=== PATIENT | female | born 1935 | race Caucasian/White ===

== ENCOUNTER 2018-10-11 00:50 | Emergency (ER) | payer MEDICARE, OTHER ==
--- NOTE | 2018-10-11 01:21 | ERPHSYRPT ---
- History of Present Illness Time Seen by Provider: 10/11/18 01:20 Source: patient Exam Limitations: no limitations Patient Subjective Stated Complaint: pt is ambulatory with a steady gait. pt is ambulatory with a steady gait. pt comes in with SOB. pt denies chest pain, Dizziness, lightheadedness, n/v/d. pt has multiple bites to her lower legs. pt states that she had bed bugs. pt is 96% on RA. pt lung sounds clear. pt has hx of asthma. Triage Nursing Assessment: see above Physician History: pt comes in with SOB. pt denies chest pain, Dizziness, lightheadedness, n/v/d. pt has multiple bites to her lower legs. pt states that she had bed bugs Timing/Duration: today Allergies/Adverse Reactions: ezetimibe [From Vytorin 10-10] Allergy (Intermediate, Verified 10/10/12 14:55) simvastatin [From Vytorin 10-10] Allergy (Intermediate, Verified 10/10/12 14:55) NSAIDS (Non-Steroidal Anti-Inflamma Allergy (Mild, Verified 10/10/12 14:55) colchicine Allergy (Verified 10/11/18 01:05) pregabalin [From Lyrica] Allergy (Verified 10/10/12 14:55) indomethacin Adverse Reaction (Severe, Verified 10/10/12 14:55) seizures rofecoxib [From Vioxx] Adverse Reaction (Severe, Verified 10/10/12 14:55) atorvastatin calcium [From Lipitor] Adverse Reaction (Intermediate, Verified 14:55) pain Penicillins Adverse Reaction (Intermediate, Verified 10/10/12 14:55) Itching pravastatin sodium [From Pravachol] Adverse Reaction (Intermediate, Verified 14:55) Swelling niacin [From Simcor] Adverse Reaction (Verified 10/10/12 14:55) Home Medications: Albuterol Sulfate [Ventolin Hfa] 90 mcg NEB QID 08/20/12 [History] Allopurinol 100 mg [Zyloprim 100 mg] 100 mg PO DAILY 08/20/12 [History] Aspirin [Aspir 81] 81 mg PO DAILY 08/20/12 [History] Clopidogrel Bisulfate 75 mg [PLAVIX 75 MG Tablet] 75 mg PO HS 08/20/12 [ History] Fluoxetine HCl 20 mg [Prozac 20 MG] 20 mg PO BID 08/20/12 [History] Levothyroxine Sodium 100 Mcg [Synthroid 100 Mcg] 100 mcg PO DAILY 08/20/12 [History] Loratadine 10 mg [Claritin 10 mg] 10 mg PO DAILY 08/20/12 [History] Metoprolol Tartrate 25 mg [Lopressor 25MG Tab] 25 mg PO BID 08/20/12 [ History] Pravastatin Sodium 40 mg PO HS 08/20/12 [History] Spironolactone 25 mg [Aldactone 25 MG] 25 mg PO DAILY 08/20/12 [History] Zafirlukast 20 mg [Accolate 20 mg] 20 mg PO DAILY 08/20/12 [History] Hx Tetanus, Diphtheria Vaccination/Date Given: No Hx Influenza Vaccination/Date Given: Yes Hx Pneumococcal Vaccination/Date Given: Yes Immunizations Up to Date: Yes - Review of Systems Constitutional: No Fever, No Chills Eyes: No Symptoms Ears, Nose, & Throat: No Symptoms Respiratory: No Cough, No Dyspnea Cardiac: No Chest Pain, No Edema, No Syncope Abdominal/Gastrointestinal: No Abdominal Pain, No Nausea, No Vomiting, No Diarrhea Genitourinary Symptoms: No Dysuria Musculoskeletal: No Back Pain, No Neck Pain Skin: No Rash Neurological: No Dizziness, No Focal Weakness, No Sensory Changes Psychological: No Symptoms Endocrine: No Symptoms All Other Systems: Reviewed and Negative - Past Medical History Pertinent Past Medical History: Yes Neurological History: Migraines ENT History: No Pertinent History Cardiac History: Congestive Heart Failure, High Cholesterol, Hypertension Respiratory History: Asthma, COPD Endocrine Medical History: Diabetes Type II, Hypothyroidism Musculoskeletal History: Osteoarthritis GI Medical History: Gallbladder Disease History: No Pertinent History Psycho-Social History: Anxiety Female Reproductive Disorders: No Pertinent History Other Medical History: GOUT, NEURAPTHAY - Past Surgical History Past Surgical History: Yes Neuro Surgical History: No Pertinent History Cardiac: Cardiac Catheterization, Cardiac Stent Gastrointestinal: Cholecystectomy Genitourinary: No Pertinent History Musculoskeletal: Joint Replacement Female Surgical History: Section Other Surgical History: double hip replacement - Social History Smoking Status: Never smoker Exposure to second hand smoke: No Drug Use: none Patient Lives Alone: Yes - Female History Hx Now: No - Nursing Vital Signs Nursing Vital Signs: Initial Vital Signs Pulse Rate 109 H 10/11/18 00:53 Respiratory Rate 18 10/11/18 00:53 Blood Pressure 143/92 10/11/18 00:53 O2 Sat by Pulse Oximetry 95 10/11/18 00:53 - Physical Exam General Appearance: no apparent distress, alert Eye Exam: PERRL/EOMI Neck Exam: normal inspection, supple Cardiovascular/Chest Exam: normal heart sounds, regular rate/rhythm Abdominal/Gastrointestinal Exam: soft, No tenderness, No distention, No mass Extremity Exam: non-tender, normal range of motion, normal inspection, no calf tenderness, no pedal edema Neurologic Exam: alert, oriented x 3, cooperative, project engineering director II-XII nml as tested, sensation nml, No motor deficits Skin Exam: normal color, warm, other (bugs bite all over body), No dry SpO2 Interpretation: normal SpO2: 95 - Course Nursing assessment & vital signs reviewed: Yes Ordered Tests: Active Orders 24 hr Category Date Time Status CHEST 1 VIEW (PORTABLE) Stat Exams 10/11/18 01:12 Taken CBC W DIFF Stat Lab 10/11/18 01:39 Completed CMP Stat Lab 10/11/18 01:39 Completed Lab/Rad Data: Laboratory Result Diagrams 10/11/18 01:39 10/11/18 01:39 Laboratory Results 10/11/18 10/11/18 Range/Units 01:39 01:39 WBC 10.4 (4.0-10.5) K/mm3 RBC 3.99 L (4.1-5.4) M/mm3 Hgb 12.9 (12.0-16.0) gm/dl Hct 39.7 (35-47) % MCV 99.5 (78-100) fl MCH 32.3 H (26-32) pg MCHC 32.5 (32-36) g/dl RDW 13.3 (11.5-14.0) % Plt Count 254 (150-450) K/mm3 MPV 11.0 H (6-9.5) fl Gran % 57.9 (36.0-66.0) % Eos # (Auto) 0.42 (0-0.5) Absolute Lymphs (auto) 2.94 (1.0-4.6) Absolute Monos (auto) 0.93 (0.0-1.3) Lymphocytes % 28.3 (24.0-44.0) % Monocytes % 9.0 (0.0-12.0) % Eosinophils % 4.0 (0.00-5.0) % Basophils % 0.8 (0.0-0.4) % Absolute Granulocytes 6.02 (1.4-6.9) Basophils # 0.08 (0-0.4) Sodium 141 (137-145) mmol/L Potassium 3.7 (3.5-5.1) mmol/L Chloride 102 (98-107) mmol/L Carbon Dioxide 26 (22-30) mmol/L Anion Gap 16.0 H (5-15) MEQ/L BUN 39 H (7-17) mg/dL Creatinine 1.32 H (0.52-1.04) mg/dL Estimated GFR 41.2 ML/MIN Glucose 179 H (74-106) mg/dL Calcium 9.5 (8.4-10.2) mg/dL Total Bilirubin 0.70 (0.2-1.3) mg/dL AST 18 (14-36) U/L ALT 15 (0-35) U/L Alkaline Phosphatase 77 (38-126) U/L Serum Total Protein 7.9 (6.3-8.2) g/dL Albumin 4.2 (3.5-5.0) g/dL - Progress Progress: improved Air Movement: good Blood Culture(s) Obtained: No Antibiotics given: No Counseled pt/family regarding: lab results, diagnosis, need for follow-up - Departure Time of Disposition: 02:26 Departure Disposition: Home Clinical Impression: Shortness of breath with rash, Infestation by bed bug Condition: Stable Critical Care Time: No Referrals: CORDELL PAGE MD [Primary Care Provider] - Instructions: Shortness of Breath (Dyspnea) (DC), Bedbugs Additional Instructions: HOSSEINGEO Mandeep was seen on 10/11/18 n the Emergency Room. At that time you were treated for an emergent condition, during your visit Laboratory, Radiology and/or other procedures may have been ordered. It is very important that you follow-up with your Primary Care Physician CORDELL PAGE within the next 24- 48 hours to review your Emergency Room visit and the final results of testing that was ordered. Some test results such as Urine Cultures, Blood Cultures, and other cultures if ordered will not be finalized for 24-48 hours. If you do not have a Primary Care Provider please call the medical records department at [phone] to obtain a copy of your results or you may sign into our patient portal to obtain these results by visiting us @ [email or web address] and completing the following steps: 1. Click on the Patient Portal link 2. Click the Patient Self Enrollment Link to complete the enrollment form and entering your 3. Once the enrollment form is completed you will receive an email with a temporary ID and password at the email address you provided. 4. Next choose a user name and password. Your user name must be at least 4 characters long and your password must be at least 4 characters long. 5. Choose a security question from the list and provide your answer to the question. If you already have signed into the Health Portal you may access your Health Care Information 11/02 by the following steps: 1. Login to our website @ [email or web address] 2. Enter your original user name and password. FAQS The [facility] Health Portal is an online tool that contains your Lab Results, Radiology Reports, Visit History, Discharge Instructions and Health Summary Lab and Radiology Results will not be available for 72 hours on the portal. The Portal is a secure site, passwords are encryted and URLs are re-written so they cannot be copied and pasted. You and authorized family members are the only ones who can access your Portal. Also there is a timeout feature that protects your information if you leave the Portal page open. If you have technical difficulty please use the Contact Us link on the page this will allow you to submit any questions you have regarding the Portal or you may contact the Medical Record Department at [phone] ext [phone].
[2018-10-11 01:37] LABS: BASOPHIL % 0.8 % (0.0-0.4); Basophil (Absolute #) 0.08 (0-0.4); Eosinophil (Absolute #) 0.42 (0-0.5); Granulocyte Absolute (ANC) 6.02 (1.4-6.9); Granulocytes % 57.9 % (36.0-66.0); Hematocrit 39.7 % (35-47); Hemoglobin 12.9 gm/dl (12.0-16.0); Lymphocyte (Absolute #) 2.94 (1.0-4.6); Lymphocytes % 28.3 % (24.0-44.0); Mean Cell Volume 99.5 fl (78-100); Mean Corpuscular Hemoglobin 32.3 pg (26-32); Mean Corpuscular Hgb Concent. 32.5 g/dl (32-36); Monocyte (Absolute #) 0.93 (0.0-1.3); Platelet Count 254 K/mm3 (150-450); Red Blood Count 3.99 M/mm3 (4.1-5.4); Red Cell Distribution Width 13.3 % (11.5-14.0); White Blood Count 10.4 K/mm3 (4.0-10.5)
[2018-10-11 01:51] LABS: ALBUMIN 4.2 g/dL (3.5-5.0); BILIRUBIN,TOTAL 0.7 mg/dL (0.2-1.3); Calcium 9.5 mg/dL (8.4-10.2); Creatinine 1 1.32 mg/dL (0.52-1.04); Potassium 3.7 mmol/L (3.5-5.1); Total Protein 7.9 g/dL (6.3-8.2)
[2018-10-11] MEDS ORDERED: BENADRYL 50 MG/ML IM ONE (02:26)
[2018-10-11] MEDS ORDERED: BENADRYL 50 MG/ML ONE (02:28)
[2018-10-11 02:29] VITALS: O2SAT 95
[2018-10-11 02:50] VITALS: BP 146/71; PULSE 77
--- NOTE | 2018-10-11 09:22 | XRAY ---
Indication: Short of breath. Comparison: October 10, 2012. Portable chest demonstrates stable bilateral midlung fibrosis/scarring. No focal infiltrate, consolidation, or large effusion. Heart is not enlarged for AP portable technique. Bony thorax intact again with mild osteopenia and degenerative changes. Impression: Stable nonacute chest with chronic features.
== END 2018-10-11 02:48 | disposition home or self-care (01) ==
LOC: ED 00:50
DX: R06.02 Shortness of breath (principal); R21 Rash and other nonspecific skin eruption; B88.8 Other specified infestations; I50.9 Heart failure, unspecified; E78.00 Pure hypercholesterolemia, unspecified; I10 Essential (primary) hypertension; J44.9 Chronic obstructive pulmonary disease, unspecified; F41.9 Anxiety disorder, unspecified; M10.9 Gout, unspecified; G62.9 Polyneuropathy, unspecified; Z79.899 Other long term (current) drug therapy
CPT/HCPCS: 36415; 71045; 80053; 85025; 96372; 99284; J1200

== ENCOUNTER 2023-02-22 13:33 | Observation (INO) | payer MEDICARE, OTHER ==
[2023-02-22 14:46] LABS: Absolute Neutrophil Ct (ANC) 5.28 x10^3/uL (1.4-6.9); BASOPHIL % 0.9 % (0.0-0.4); Basophil (Absolute #) 0.09 x10^3/uL (0-0.4); Eosinophil % 2.4 % (0.00-5.0); Eosinophil (Absolute #) 0.24 x10^3/uL (0-0.5); Hematocrit 38.2 % (35-47); Hemoglobin 12.2 g/dL (12.0-16.0); IMMATURE GRAN # 0.04 x10^3u/L (0.00-0.03); IMMATURE GRAN % 0.4 % (0.00-0.4); Lymphocyte (Absolute #) 3.14 x10^3/uL (1.0-4.6); Mean Cell Volume 96.7 fL (78-100); Mean Corpuscular Hemoglobin 30.9 pg (26-32); Mean Corpuscular Hgb Concent. 31.9 g/dL (32-36); Mean Platelet Volume 11.2 fL (7.5-11.0); Monocyte (Absolute #) 1.01 x10^3/uL (0.0-1.3); Monocytes % 10.3 % (0.0-12.0); NUCLEATED RBC # 0.03 x10^3u/L (0.00-0.01); NUCLEATED RBC % 0.3 % (0.00-0.1); Platelet Count 215 x10^3/uL (150-450); Red Blood Count 3.95 x10^6/uL (4.1-5.4); Red Cell Distribution Width 15.3 % (11.5-14.0); White Blood Count 9.8 x10^3/uL (4.0-10.5)
--- NOTE | 2023-02-22 14:48 | ERPHSYRPT ---
- History of Present Illness Time Seen by Provider: 02/22/23 13:41 Source: patient, family Exam Limitations: no limitations Patient Subjective Stated Complaint: Cough Triage Nursing Assessment: Patient brought back to ED per w/c and transferred self to bed. Patient A+O X 3. Patient's skin pink, warm and dry. Patient states she is Covid Positive as of February 19, 2023. Patient states she started having sore throat, fever, body aches and cough since Saturday. Patient complains of productive cough with thick yellow sputum. Lungs clear a/p gina. Physician History: 87 years old female with history of hypertension, hyperlipidemia, coronary artery disease, atrial fibrillation on Xarelto, asthma presented in the ER with chief complaint of cough congestion with a positive COVID-19 4 days ago. Patient reports it started 5 days ago with cough congestion, body aches and fever chills. Fever is improved for the last couple of days and now still have cough productive of clear to yellow sputum and mild shortness of breath with activity than her baseline. Denies any chest pain or palpitations. Patient oxygen saturation is around 96% on room. No tachypnea but cardiac. Timing/Duration: day(s) (5), gradual onset, improved Cough Quality/Degree: moderate, productive cough Possible Cause: illness exposure Modifying Factors: Worsens With: coughing Associated Symptoms: fever, chills, chest pain/soreness, cough, headache, muscle aches, nasal congestion, shortness of breath, sore throat Allergies/Adverse Reactions: ezetimibe [From Vytorin 10-10] Allergy (Intermediate, Verified 02/22/23 13:48) simvastatin [From Vytorin 10-10] Allergy (Intermediate, Verified 02/22/23 13:48) NSAIDS (Non-Steroidal Anti-Inflamma Allergy (Mild, Verified 02/22/23 13:48) colchicine Allergy (Verified 02/22/23 13:48) pregabalin [From Lyrica] Allergy (Verified 02/22/23 13:48) indomethacin Adverse Reaction (Severe, Verified 02/22/23 13:48) seizures rofecoxib [From Vioxx] Adverse Reaction (Severe, Verified 02/22/23 13:48) atorvastatin calcium [From Lipitor] Adverse Reaction (Intermediate, Verified 02/22/23 13:48) pain Penicillins Adverse Reaction (Intermediate, Verified 02/22/23 13:48) Itching pravastatin sodium [From Pravachol] Adverse Reaction (Intermediate, Verified 02/22/23 13:48) Swelling niacin [From Simcor] Adverse Reaction (Verified 02/22/23 13:48) Home Medications: Albuterol Sulfate [Ventolin Hfa] 90 mcg NEB QID 08/20/12 [History] Allopurinol 100 mg [Zyloprim 100 mg] 100 mg PO DAILY 08/20/12 [History] Aspirin [Aspir 81] 81 mg PO DAILY 08/20/12 [History] Clopidogrel Bisulfate [PLAVIX Tablet] 75 mg PO HS 08/20/12 [History] Fluoxetine HCl 20 mg [Prozac 20 MG] 20 mg PO BID 08/20/12 [History] Levothyroxine Sodium 100 Mcg [Synthroid 100 Mcg] 100 mcg PO DAILY 08/20/12 [History] Loratadine 10 mg [Claritin 10 mg] 10 mg PO DAILY 08/20/12 [History] Metoprolol Tartrate 25 mg [Lopressor 25MG Tab] 25 mg PO BID 08/20/12 [History] Pravastatin Sodium 40 mg PO HS 08/20/12 [History] Spironolactone 25 mg [Aldactone 25 MG] 25 mg PO DAILY 08/20/12 [History] Zafirlukast 20 mg [Accolate 20 mg] 20 mg PO DAILY 08/20/12 [History] Hx Tetanus, Diphtheria Vaccination/Date Given: No Hx Influenza Vaccination/Date Given: Yes Hx Pneumococcal Vaccination/Date Given: Yes Immunizations Up to Date: Yes Travel Risk - International Travel Have you traveled outside of the country in past 3 weeks: No - Coronavirus Screening Are you exhibiting any of the following symptoms?: Yes Symptoms: Fever, Cough: New Onset, Shortness of Breath - Vaccine Status Have you recieved a Covid-19 vaccination: Yes Medical Education Coordinator: Unknown - Vaccination Dates Dates if Unknown: na - Review of Systems Constitutional: Fatigue, Weakness Eyes: No Symptoms Ears, Nose, & Throat: Nose Congestion, Throat Pain Respiratory: Cough, Dyspnea Cardiac: No Symptoms Abdominal/Gastrointestinal: No Symptoms Genitourinary Symptoms: No Symptoms Musculoskeletal: Myalgias Skin: No Symptoms Neurological: Headache Hematologic/Lymphatic: No Symptoms Immunological/Allergic: No Symptoms - Past Medical History Pertinent Past Medical History: Yes Neurological History: Migraines ENT History: No Pertinent History Cardiac History: Congestive Heart Failure, High Cholesterol, Hypertension Respiratory History: Asthma, COPD Endocrine Medical History: Diabetes Type II, Hypothyroidism Musculoskeletal History: Osteoarthritis GI Medical History: Gallbladder Disease History: No Pertinent History Psycho-Social History: Anxiety Female Reproductive Disorders: No Pertinent History Other Medical History: GOUT, NEURAPTHAY - Past Surgical History Past Surgical History: Yes Neuro Surgical History: No Pertinent History Cardiac: Cardiac Catheterization, Cardiac Stent Gastrointestinal: Cholecystectomy Genitourinary: No Pertinent History Musculoskeletal: Joint Replacement Female Surgical History: Section Other Surgical History: double hip replacement - Social History Smoking Status: Never smoker Exposure to second hand smoke: No Drug Use: none Patient Lives Alone: Yes - Nursing Vital Signs Nursing Vital Signs: Initial Vital Signs Temperature 98.6 F 02/22/23 13:49 Pulse Rate 61 02/22/23 13:49 Respiratory Rate 19 02/22/23 13:49 Blood Pressure 112/62 02/22/23 13:49 O2 Sat by Pulse Oximetry 96 02/22/23 13:49 Pain Scale Pain Intensity 0 - Physical Exam General Appearance: no apparent distress, alert Eye Exam: PERRL/EOMI Ears, Nose, Throat Exam: pharyngeal erythema Neck Exam: normal inspection, non-tender, supple, full range of motion Respiratory Exam: normal breath sounds, lungs clear Cardiovascular Exam: regular rate/rhythm, normal heart sounds Gastrointestinal/Abdomen Exam: soft, No tenderness Extremity Exam: normal inspection, normal range of motion Neurologic Exam: alert, oriented x 3, cooperative, athletic director II-XII nml as tested Skin Exam: normal color SpO2 Interpretation: normal SpO2: 96 O2 Delivery: Room Air - Course EKG Interpreted by Me: RATE, Sinus Rhythm, NORMAL AXIS, Right Bundle Branch Block, Non-specific ST Changes Ordered Tests: Active Orders 24 hr Category Date Time Status Bedrest ROUTINE Activity 02/22/23 16:55 Completed Up With Assistance ROUTINE Activity 02/22/23 16:55 Completed Code Status Order ROUTINE Care 02/22/23 16:55 Active Fall Protocol ROUTINE Care 02/22/23 16:55 Active IV Care Q6H Care 02/22/23 16:55 Active IV Insertion STAT Care 02/22/23 16:[address] in Observation ROUTINE Care 02/22/23 16:55 Completed Madhuri Cox ROUTINE Care 02/22/23 16:55 Completed Weight,Daily 0600 Care 02/22/23 16:55 Active CHEST 1 VIEW (PORTABLE) Stat Exams 02/22/23 14:02 Taken BLOOD CULTURE Stat Lab 02/22/23 14:36 Received CBC W DIFF AM.LAB Lab 02/23/23 04:00 Ordered CBC W DIFF Stat Lab 02/22/23 14:01 Completed CMP AM.LAB Lab 02/23/23 04:00 Ordered CMP Stat Lab 02/22/23 14:36 Completed Lactic Acid Stat Lab 02/22/23 14:40 Completed MAGNESIUM Stat Lab 02/22/23 14:36 Completed NT PRO BNPII Stat Lab 02/22/23 14:36 Completed PROCALCITONIN Stat Lab 02/22/23 14:36 Completed TROPONIN Q4H Lab 02/22/23 14:36 Completed TROPONIN Q4H Lab 02/22/23 18:15 Ordered TROPONIN Q4H Lab 02/22/23 22:15 Ordered Transfer Order Routine Transfer 02/22/23 Completed Medication Summary Generic Name Dose Route Start Last Admin Trade Name Freq PRN Reason Stop Dose Admin Acetaminophen 650 mg 02/22/23 16:55 Acetaminophen 325 Mg Tablet PO 03/24/23 16:54 Q4H PRN PRN PAIN AND/OR FEVER Albuterol Sulfate 4 puff 02/22/23 19:00 Albuterol Common Canister Inhaler 03/24/23 18:59 QIDRT JORGE Albuterol/Ipratropium 3 ml 02/22/23 19:00 Ipratropium/Albuterol Sulfate 3 Ml Ampul.Neb 03/24/23 18:59 Q6HRT JORGE Famotidine 20 mg 02/22/23 22:00 Famotidine 20 Mg/1 Vial IV 03/24/23 21:59 Q12HT JORGE Azithromycin 500 mg in 250 mls @ 250 mls/hr 02/23/23 10:00 Zithromax 500 Mg/ 250 Ml Nacl Premix IV 03/25/23 09:59 Q24H10 JORGE Aztreonam 1 gm/ Sodium 100 mls @ 200 mls/hr 02/23/23 00:00 Chloride IV 02/26/23 00:00 Q6HT JORGE Fluticasone/Salmeterol 2 puff 02/22/23 19:00 Fluticasone/Salmeterol 115/21 - 120 Puff Common Canister IH 03/24/23 18:59 BIDRT JORGE Discontinued Medications Generic Name Dose Route Start Last Admin Trade Name Raul PRN Reason Stop Dose Admin Hydrocodone Bitart/Acetaminophen 10 ml 02/22/23 16:06 02/22/23 16:07 Hydrocodone/Acetaminophen 5 Ml Udcup PO 02/22/23 16:07 10 ml STAT STA Administration Hydrocodone Bitart/Acetaminophen Confirm 02/22/23 16:06 Hydrocodone/Acetaminophen 5 Ml Udcup Administered 02/22/23 16:07 Dose 10 ml .ROUTE .STK-MED ONE Dexamethasone Sodium Phosphate 6 mg 02/22/23 15:47 02/22/23 16:02 Dexamethasone Sod Phosphate 10 Mg/Ml IV 02/22/23 15:48 6 mg STAT ONE Administration Dexamethasone Sodium Phosphate Confirm 02/22/23 16:01 Dexamethasone Sod Phosphate 10 Mg/Ml Administered 02/22/23 16:02 Dose 10 mg .ROUTE .STK-MED ONE Azithromycin 500 mg in 250 mls @ 250 mls/hr 02/22/23 15:45 02/22/23 17:31 Zithromax 500 Mg/ 250 Ml Nacl Premix IV 02/22/23 16:44 250 mls/hr STAT STA Administration Aztreonam 2 gm/ Sodium 100 mls @ 200 mls/hr 02/22/23 15:46 02/22/23 16:23 Chloride IV 02/22/23 16:15 200 mls/hr STAT ONE Administration Azithromycin Confirm 02/22/23 17:30 Zithromax 500 Mg/ 250 Ml Nacl Premix Administered 02/22/23 17:31 Dose 500 mg in 250 mls @ ud IV .STK-MED ONE Lab/Rad Data: Laboratory Result Diagrams 02/22/23 14:01 02/22/23 14:36 Laboratory Results 02/22/23 02/22/23 02/22/23 Range/Units 14:40 14:36 14:36 WBC (4.0-10.5) x10^3/uL RBC (4.1-5.4) x10^6/uL Hgb (12.0-16.0) g/dL Hct (35-47) % MCV (78-100) fL MCH (26-32) pg MCHC (32-36) g/dL RDW (11.5-14.0) % Plt Count (150-450) x10^3/uL MPV (7.5-11.0) fL Gran % (36.0-66.0) % Immature Gran % (Auto) (0.00-0.4) % Nucleat RBC Rel Count (0.00-0.1) % Eos # (Auto) (0-0.5) x10^3/uL Immature Gran # (Auto) (0.00-0.03) x10^3u/L Absolute Lymphs (auto) (1.0-4.6) x10^3/uL Absolute Monos (auto) (0.0-1.3) x10^3/uL Absolute Nucleated RBC (0.00-0.01) x10^3u/L Lymphocytes % (24.0-44.0) % Monocytes % (0.0-12.0) % Eosinophils % (0.00-5.0) % Basophils % (0.0-0.4) % Absolute Granulocytes (1.4-6.9) x10^3/uL Basophils # (0-0.4) x10^3/uL Sodium 136 L (137-145) mmol/L Potassium 4.1 (3.5-5.1) mmol/L Chloride 103 (98-107) mmol/L Carbon Dioxide 20 L (22-30) mmol/L Anion Gap 16.5 H (5-15) MEQ/L BUN 40 H (7-17) mg/dL Creatinine 1.76 H (0.52-1.04) mg/dL Estimated GFR 29.2 ML/MIN Glucose 117 H (74-106) mg/dL Lactic Acid 1.2 (0.4-2.0) Calcium 8.6 (8.4-10.2) mg/dL Magnesium 2.1 (1.6-2.3) mg/dL Total Bilirubin 0.50 (0.2-1.3) mg/dL AST 38 H (14-36) U/L ALT 24 (0-35) U/L Alkaline Phosphatase 86 (38-126) U/L Troponin I 0.093 H* (0.000-0.034) ng/mL NT-Pro-B Natriuret Pep 2090 (<300) pg/mL Serum Total Protein 6.9 (6.3-8.2) g/dL Albumin 3.4 L (3.5-5.0) g/dL Procalcitonin 0.290 H (0.030-0.080) ng/mL 02/22/23 Range/Units 14:01 WBC 9.8 (4.0-10.5) x10^3/uL RBC 3.95 L (4.1-5.4) x10^6/uL Hgb 12.2 (12.0-16.0) g/dL Hct 38.2 (35-47) % MCV 96.7 (78-100) fL MCH 30.9 (26-32) pg MCHC 31.9 L (32-36) g/dL RDW 15.3 H (11.5-14.0) % Plt Count 215 (150-450) x10^3/uL MPV 11.2 H (7.5-11.0) fL Gran % 54.0 (36.0-66.0) % Immature Gran % (Auto) 0.4 (0.00-0.4) % Nucleat RBC Rel Count 0.3 H (0.00-0.1) % Eos # (Auto) 0.24 (0-0.5) x10^3/uL Immature Gran # (Auto) 0.04 H (0.00-0.03) x10^3u/L Absolute Lymphs (auto) 3.14 (1.0-4.6) x10^3/uL Absolute Monos (auto) 1.01 (0.0-1.3) x10^3/uL Absolute Nucleated RBC 0.03 H (0.00-0.01) x10^3u/L Lymphocytes % 32.0 (24.0-44.0) % Monocytes % 10.3 (0.0-12.0) % Eosinophils % 2.4 (0.00-5.0) % Basophils % 0.9 (0.0-0.4) % Absolute Granulocytes 5.28 (1.4-6.9) x10^3/uL Basophils # 0.09 (0-0.4) x10^3/uL Sodium (137-145) mmol/L Potassium (3.5-5.1) mmol/L Chloride (98-107) mmol/L Carbon Dioxide (22-30) mmol/L Anion Gap (5-15) MEQ/L BUN (7-17) mg/dL Creatinine (0.52-1.04) mg/dL Estimated GFR ML/MIN Glucose (74-106) mg/dL Lactic Acid (0.4-2.0) Calcium (8.4-10.2) mg/dL Magnesium (1.6-2.3) mg/dL Total Bilirubin (0.2-1.3) mg/dL AST (14-36) U/L ALT (0-35) U/L Alkaline Phosphatase (38-126) U/L Troponin I (0.000-0.034) ng/mL NT-Pro-B Natriuret Pep (<300) pg/mL Serum Total Protein (6.3-8.2) g/dL Albumin (3.5-5.0) g/dL Procalcitonin (0.030-0.080) ng/mL - Progress Progress: improved, re-examined Air Movement: good Progress Note: 02/22/23 14:47 87 years old female with history of hypertension, hyperlipidemia, coronary artery disease, atrial fibrillation on Xarelto, asthma presented in the ER with chief complaint of cough congestion with a positive COVID-19 4 days ago. Patient reports it started 5 days ago with cough congestion, body aches and fever chills. Fever is improved for the last couple of days and now still have cough productive of clear to yellow sputum and mild shortness of breath with activity than her baseline. Denies any chest pain or palpitations. Patient oxygen saturation is around 96% on room. No tachypnea but cardiac. Family wanted to make sure she does not have pneumonia. Patient does use neb treatments at home. She is not in any distress. Lungs fairly clear to auscultation. 02/22/23 16:11 Work-up showed normal white count, CKD with a creatinine of 1.7, no recent baseline creatinine available in record. EKG no ST elevation, normal sinus rhythm and right bundle branch block. Initial troponin 0.093. Patient has a positive COVID-19. Chest x-ray reviewed by me, do not see any obvious infiltrative process. Official report is pending. Patient has normal lactate but Pro-Efren of 0.29. Given a dose of Zithromax and Azactam and one-time dose of steroid. She is also given hydrocodone liquid for coughing. I believe she would benefit with frequent nebs, antibiotics and symptomatic care. We will trend cardiac enzymes as well. I have discussed with Dr. Florence hospitalist on- call at 1610, reviewed history, work-up, agreed with admission. I have discussed the results of work-up and plan of admission with patient and family who understand and agree with it. Discussed with Dr.: Other Will see patient in: hospital (observation) Counseled pt/family regarding: lab results, diagnosis, rad results Medical Desision Making - Independent Historian Additional History obtained from: Child - Discussion of managment Care discussed with:: hospitalist (Dr. Florence 1610) Reviewed:: Test results Agreed on:: Treatment plan, place in obs Will see patient: in hospital - Diagnostic Testing Diagnostic test were ordered, analyzed, and reviewed by me: Yes Radiological Interpretation: Interpreted by me, Reviewed by me - Risk of complications The pt has a high risk of morbidity or mortality based on: Decision regarding hospitilization or escalation of hosp level of care - Departure Departure Disposition: Observation Clinical Impression: COVID-19 virus detected, Elevated troponin, Pneumonia Condition: Stable Critical Care Time: No
[2023-02-22 15:17] LABS: ALBUMIN 3.4 g/dL (3.5-5.0); ANION GAP 16.5 MEQ/L (5-15); BILIRUBIN,TOTAL 0.5 mg/dL (0.2-1.3); Calcium 8.6 mg/dL (8.4-10.2); Creatinine 1 1.76 mg/dL (0.52-1.04); EST GLOMERULAR FILTRATION RATE 29.2 ML/MIN; MAGNESIUM 2.1 mg/dL (1.6-2.3); PROCALCITONIN 0.29 ng/mL (0.030-0.080); Potassium 4.1 mmol/L (3.5-5.1); Total Protein 6.9 g/dL (6.3-8.2)
[2023-02-22 15:22] LABS: INFLUENZA A NEGATIVE (NEGATIVE); INFLUENZA B NEGATIVE (NEGATIVE); RESPIRATORY SYNCTIAL VIRUS NEGATIVE (NEGATIVE)
[2023-02-22 15:43] LABS: SARS-CoV-2 Xpert Express POSITIVE (NEGATIVE)
[2023-02-22] MEDS ORDERED: Zithromax 500 MG/ 250 ML NaCl Premix 500 MG/250 ML IVPB IV STA (15:45)
[2023-02-22] MEDS ORDERED: AZACTAM 1 GM*** 2 GM in Sodium Chloride 0.9% 100 ML IV ONE (15:46)
[2023-02-22] MEDS ORDERED: DECADRON 10MG INJ. IV ONE (15:47)
[2023-02-22] MEDS ORDERED: DECADRON 10MG INJ. ONE (16:01)
[2023-02-22] MEDS ORDERED: HYDROCODONE-ACETAMIN 2.5-108/5 ML SOLUTION PO STA (16:06)
[2023-02-22] MEDS ORDERED: HYDROCODONE-ACETAMIN 2.5-108/5 ML SOLUTION ONE (16:06)
--- NOTE | 2023-02-22 16:15 | PCM.HP ---
History of Present Illness - Chief Complaint Chief Complaint: COVID Date: 02/22/23 History of Present Illness: is a 87 year old female. 87 years old female with history of hypertension, hyperlipidemia, coronary artery disease, atrial fibrillation on Xarelto, asthma presented in the ER with chief complaint of cough congestion with a positive COVID-19 4 days ago. Patient reports it started 5 days ago with cough congestion, body aches and fever chills. Fever is improved for the last couple of days and now still have cough productive of clear to yellow sputum and mild shortness of breath with activity than her baseline. Denies any chest pain or palpitations. Patient oxygen saturation is around 96% on room. No tachypnea but cardiac. Medications & Allergies Home Medications: Home Medication List Albuterol Sulfate [Ventolin Hfa] 90 mcg NEB QID 08/20/12 [History Confirmed 10/11/18] Allopurinol 100 mg [Zyloprim 100 mg] 100 mg PO DAILY 08/20/12 [History Confirmed 10/11/18] Aspirin [Aspir 81] 81 mg PO DAILY 08/20/12 [History Confirmed 10/11/18] Clopidogrel Bisulfate [PLAVIX Tablet] 75 mg PO HS 08/20/12 [History Confirmed 10/11/18] Fluoxetine HCl 20 mg [Prozac 20 MG] 20 mg PO BID 08/20/12 [History Confirmed 10/11/18] Levothyroxine Sodium 100 Mcg [Synthroid 100 Mcg] 100 mcg PO DAILY 08/20/12 [History Confirmed 10/11/18] Loratadine 10 mg [Claritin 10 mg] 10 mg PO DAILY 08/20/12 [History Confirmed 10/11/18] Metoprolol Tartrate 25 mg [Lopressor 25MG Tab] 25 mg PO BID 08/20/12 [History Confirmed 10/11/18] Pravastatin Sodium 40 mg PO HS 08/20/12 [History Confirmed 10/11/18] Spironolactone 25 mg [Aldactone 25 MG] 25 mg PO DAILY 08/20/12 [History Confirmed 10/11/18] Zafirlukast 20 mg [Accolate 20 mg] 20 mg PO DAILY 08/20/12 [History Confirmed 10/11/18] Azithromycin [Zithromax] 500 mg PO DAILY #5 tablet 10/10/12 [Rx Confirmed 10/11/18] Methylprednisolone Packet [Medrol Dosepack] 4 mg PO UD #1 packet 10/10/12 [Rx Confirmed 10/11/18] Allergies/Adverse Reactions: Allergies Allergy/AdvReac Type Severity Reaction Status Date / Time ezetimibe Allergy Intermediate Verified 02/22/23 13:48 [From Vytorin 10-10] simvastatin Allergy Intermediate Verified 02/22/23 13:48 [From Vytorin 10-10] NSAIDS (Non-Steroidal Allergy Mild Verified 02/22/23 13:48 Anti-Inflamma colchicine Allergy Verified 02/22/23 13:48 pregabalin [From Lyrica] Allergy Verified 02/22/23 13:48 indomethacin AdvReac Severe seizures Verified 02/22/23 13:48 rofecoxib [From Vioxx] AdvReac Severe Verified 02/22/23 13:48 atorvastatin calcium AdvReac Intermediate pain Verified 02/22/23 13:48 [From Lipitor] Penicillins AdvReac Intermediate Itching Verified 02/22/23 13:48 pravastatin sodium AdvReac Intermediate Swelling Verified 02/22/23 13:48 [From Pravachol] niacin [From Simcor] AdvReac Verified 02/22/23 13:48 - Past Medical History Past Medical History: Yes Neurological History: Migraines ENT History: No Pertinent History Cardiac History: Congestive Heart Failure, High Cholesterol, Hypertension Respiratory History: Asthma, COPD Endocrine Medical History: Diabetes Type II, Hypothyroidism Musculoskelatal History: Osteoarthritis GI Medical History: Gallbladder Disease History: No Pertinent History Pyscho-Social History: Anxiety Reproductive Disorders: No Pertinent History Comment: GOUT, NEURAPTHAY - Past Surgical History Past Surgical History: Yes Neuro Surgical History: No Pertinent History Cardiac History: Cardiac Catheterization, Cardiac Stent GI Surgical History: Cholecystectomy Genitourinary Surgical Hx: No Pertinent History Musculskeletal Surgical Hx: Joint Replacement Female Surgical History: Section Other Surgical History: double hip replacement - Social History Smoking Status: Never smoker Exposure to second hand smoke: No Alcohol: None Drug Use: none - Physical Exam Vital Signs: Vital Signs - 24 hr Temp Pulse Resp BP BP Pulse Ox 02/22/23 16:00 65 20 118/71 94 L 02/22/23 15:30 59 L 22 110/56 94 L 02/22/23 15:27 119/51 95 02/22/23 15:00 99/49 95 02/22/23 14:48 96 02/22/23 13:49 98.6 F 61 21 112/62 96 Results - Labs Lab/Micro Results: Lab Results-Last 24 Hours 02/22/23 02/22/23 02/22/23 Range/Units 14:01 14:36 14:36 WBC 9.8 (4.0-10.5) x10^3/uL RBC 3.95 L (4.1-5.4) x10^6/uL Hgb 12.2 (12.0-16.0) g/dL Hct 38.2 (35-47) % MCV 96.7 (78-100) fL MCH 30.9 (26-32) pg MCHC 31.9 L (32-36) g/dL RDW 15.3 H (11.5-14.0) % Plt Count 215 (150-450) x10^3/uL MPV 11.2 H (7.5-11.0) fL Gran % 54.0 (36.0-66.0) % Immature Gran % (Auto) 0.4 (0.00-0.4) % Nucleat RBC Rel Count 0.3 H (0.00-0.1) % Eos # (Auto) 0.24 (0-0.5) x10^3/uL Immature Gran # (Auto) 0.04 H (0.00-0.03) x10^3u/L Absolute Lymphs (auto) 3.14 (1.0-4.6) x10^3/uL Absolute Monos (auto) 1.01 (0.0-1.3) x10^3/uL Absolute Nucleated RBC 0.03 H (0.00-0.01) x10^3u/L Lymphocytes % 32.0 (24.0-44.0) % Monocytes % 10.3 (0.0-12.0) % Eosinophils % 2.4 (0.00-5.0) % Basophils % 0.9 (0.0-0.4) % Absolute Granulocytes 5.28 (1.4-6.9) x10^3/uL Basophils # 0.09 (0-0.4) x10^3/uL Sodium 136 L (137-145) mmol/L Potassium 4.1 (3.5-5.1) mmol/L Chloride 103 (98-107) mmol/L Carbon Dioxide 20 L (22-30) mmol/L Anion Gap 16.5 H (5-15) MEQ/L BUN 40 H (7-17) mg/dL Creatinine 1.76 H (0.52-1.04) mg/dL Estimated GFR 29.2 ML/MIN Glucose 117 H (74-106) mg/dL Lactic Acid (0.4-2.0) Calcium 8.6 (8.4-10.2) mg/dL Magnesium 2.1 (1.6-2.3) mg/dL Total Bilirubin 0.50 (0.2-1.3) mg/dL AST 38 H (14-36) U/L ALT 24 (0-35) U/L Alkaline Phosphatase 86 (38-126) U/L Troponin I 0.093 H* (0.000-0.034) ng/mL NT-Pro-B Natriuret Pep 2090 (<300) pg/mL Serum Total Protein 6.9 (6.3-8.2) g/dL Albumin 3.4 L (3.5-5.0) g/dL Procalcitonin 0.290 H (0.030-0.080) ng/mL Influenza Type A Ag (NEGATIVE) Influenza Type B Ag (NEGATIVE) RSV (PCR) (NEGATIVE) SARS-CoV-2 (PCR) (NEGATIVE) 02/22/23 02/22/23 Range/Units 14:40 Unknown WBC (4.0-10.5) x10^3/uL RBC (4.1-5.4) x10^6/uL Hgb (12.0-16.0) g/dL Hct (35-47) % MCV (78-100) fL MCH (26-32) pg MCHC (32-36) g/dL RDW (11.5-14.0) % Plt Count (150-450) x10^3/uL MPV (7.5-11.0) fL Gran % (36.0-66.0) % Immature Gran % (Auto) (0.00-0.4) % Nucleat RBC Rel Count (0.00-0.1) % Eos # (Auto) (0-0.5) x10^3/uL Immature Gran # (Auto) (0.00-0.03) x10^3u/L Absolute Lymphs (auto) (1.0-4.6) x10^3/uL Absolute Monos (auto) (0.0-1.3) x10^3/uL Absolute Nucleated RBC (0.00-0.01) x10^3u/L Lymphocytes % (24.0-44.0) % Monocytes % (0.0-12.0) % Eosinophils % (0.00-5.0) % Basophils % (0.0-0.4) % Absolute Granulocytes (1.4-6.9) x10^3/uL Basophils # (0-0.4) x10^3/uL Sodium (137-145) mmol/L Potassium (3.5-5.1) mmol/L Chloride (98-107) mmol/L Carbon Dioxide (22-30) mmol/L Anion Gap (5-15) MEQ/L BUN (7-17) mg/dL Creatinine (0.52-1.04) mg/dL Estimated GFR ML/MIN Glucose (74-106) mg/dL Lactic Acid 1.2 (0.4-2.0) Calcium (8.4-10.2) mg/dL Magnesium (1.6-2.3) mg/dL Total Bilirubin (0.2-1.3) mg/dL AST (14-36) U/L ALT (0-35) U/L Alkaline Phosphatase (38-126) U/L Troponin I (0.000-0.034) ng/mL NT-Pro-B Natriuret Pep (<300) pg/mL Serum Total Protein (6.3-8.2) g/dL Albumin (3.5-5.0) g/dL Procalcitonin (0.030-0.080) ng/mL Influenza Type A Ag NEGATIVE (NEGATIVE) Influenza Type B Ag NEGATIVE (NEGATIVE) RSV (PCR) NEGATIVE (NEGATIVE) SARS-CoV-2 (PCR) POSITIVE A (NEGATIVE) - Radiology Impressions Radiology Exams & Impressions: Radiology Procedures Category Date Time Status CHEST 1 VIEW (PORTABLE) Stat Exams 02/22/23 14:02 Taken Telemedicine Encounter - Telemedicine Encounter Telemedicine Encounter: The entirety of this encounter was performed via Telemedicine"
[2023-02-22] MEDS ORDERED: TYLENOL 325 MG PO PRN (16:55)
[2023-02-22] MEDS ORDERED: Zithromax 500 MG/ 250 ML NaCl Premix 500 MG/250 ML IVPB IV ONE (17:30)
[2023-02-22] MEDS ORDERED: ULTRAM 50 MG PO PRN (18:56)
[2023-02-22] MEDS ORDERED: Nitrostat 0.4 MG Tablet SL PRN (18:56)
[2023-02-22] MEDS ORDERED: PHENERGAN 25 MG PO PRN (18:59)
[2023-02-22] MEDS ORDERED: Zofran 4 MG/2 ML VIAL IV PRN (18:59)
[2023-02-22] MEDS ORDERED: Docusate Sodium 100 MG PO PRN (18:59)
[2023-02-22] MEDS ORDERED: Advair Hfa 115/21 Common canister IH SCH (19:00)
[2023-02-22] MEDS ORDERED: VENTOLIN COMMON CANISTER IH SCH ×2 (19:00)
[2023-02-22] MEDS ORDERED: DUONEB 0.5-3 MG/3 ml Neb IH SCH (19:00)
[2023-02-22] MEDS: PATIENT OWN MEDICATION IH SCH ×4 (19:10→22:35)
--- NOTE | 2023-02-22 19:18 | PCM.HP ---
History of Present Illness - Chief Complaint Chief Complaint: COVID Date: 02/22/23 History of Present Illness: is a 87 years old female with history of hypertension, hyperlipidemia, coronary artery disease, atrial fibrillation on Xarelto, asthma presented in the ER with chief complaint of cough congestion with a positive COVID-19 4 days ago. Patient reports it started 5 days ago with cough congestion, body aches and fever chills. Fever is improved for the last couple of days and now still have cough productive of clear to yellow sputum and mild shortness of breath with activity than her baseline. She denies any palpitations or chest pain. Patient oxygen saturation is around 96% on room in the ED. - Review of Systems Constitutional: Fever, Chills Eyes: No Symptoms Ears, Nose, & Throat: Nose Congestion Respiratory: Cough, Short Of Breath Cardiac: No Symptoms Abdominal/Gastrointestinal: No Symptoms Genitourinary Symptoms: No Symptoms Musculoskeletal: No Symptoms Skin: No Symptoms Neurological: No Symptoms Psychological: No Symptoms Endocrine: No Symptoms Hematologic/Lymphatic: No Symptoms Immunological/Allergic: No Symptoms All Other Systems: Reviewed and Negative Medications & Allergies Home Medications: Home Medication List Albuterol Sulfate [Ventolin Hfa] 2 puffs IH BID PRN 08/20/12 [History Confirmed 02/22/23] Allopurinol 100 mg [Zyloprim 100 mg] 300 mg PO DAILY 08/20/12 [History Confirmed 02/22/23] Aspirin [Aspir 81] 81 mg PO HS 08/20/12 [History Confirmed 02/22/23] Fluoxetine HCl 20 mg [Prozac 20 MG] 20 mg PO DAILY 08/20/12 [History Confirmed 02/22/23] Metoprolol Tartrate 25 mg [Lopressor 25MG Tab] 50 mg PO BID 08/20/12 [History Confirmed 02/22/23] Spironolactone 25 mg [Aldactone 25 MG] 25 mg PO DAILY 08/20/12 [History Confirmed 02/22/23] Budesonide/Formoterol Fumarate [Budesonide-Formoterol 160-4.5] 2 puffs IH BID 02/22/23 [History Confirmed 02/22/23] Glimepiride 2 mg [Amaryl 2 MG] 2 mg PO DAILY 02/22/23 [History Confirmed 02/22/23] Levothyroxine Sodium [Levoxyl] 137 mcg PO DAILY 02/22/23 [History Confirmed 02/22/23] Montelukast Sodium 10 mg [Singulair 10 MG] 10 mg PO HS 02/22/23 [History Confirmed 02/22/23] Nitroglycerin 0.4 mg Tablet [Nitrostat 0.4 MG Tablet] 0.4 mg SL Q5MIN PRN MR X 3 PRN 02/22/23 [History Confirmed 02/22/23] Pravastatin Sodium 40 mg PO HS 02/22/23 [History Confirmed 02/22/23] Rivaroxaban 10 mg Tablet [Xarelto 10 mg Tablet] 15 mg PO DINNER 02/22/23 [History Confirmed 02/22/23] Tramadol HCl 50 mg [Ultram 50 mg] 50 mg PO BID PRN 02/22/23 [History Confirmed 02/22/23] dilTIAZem HCL [Diltiazem 24Hr ER] 180 mg PO DAILY 02/22/23 [History Confirmed 02/22/23] Allergies/Adverse Reactions: Allergies Allergy/AdvReac Type Severity Reaction Status Date / Time ezetimibe Allergy Intermediate Verified 02/22/23 13:48 [From Vytorin 10-10] simvastatin Allergy Intermediate Verified 02/22/23 13:48 [From Vytorin 10-10] NSAIDS (Non-Steroidal Allergy Mild Verified 02/22/23 13:48 Anti-Inflamma colchicine Allergy Verified 02/22/23 13:48 pregabalin [From Lyrica] Allergy Verified 02/22/23 13:48 indomethacin AdvReac Severe seizures Verified 02/22/23 13:48 rofecoxib [From Vioxx] AdvReac Severe Verified 02/22/23 13:48 atorvastatin calcium AdvReac Intermediate pain Verified 02/22/23 13:48 [From Lipitor] Penicillins AdvReac Intermediate Itching Verified 02/22/23 13:48 pravastatin sodium AdvReac Intermediate Swelling Verified 02/22/23 13:48 [From Pravachol] niacin [From Simcor] AdvReac Verified 08/04/23 13:48 - Past Medical History Past Medical History: Yes Neurological History: Migraines ENT History: No Pertinent History Cardiac History: Congestive Heart Failure, High Cholesterol, Hypertension Respiratory History: Asthma, COPD Endocrine Medical History: Diabetes Type II, Hypothyroidism Musculoskelatal History: Osteoarthritis GI Medical History: Gallbladder Disease History: No Pertinent History Pyscho-Social History: Anxiety Reproductive Disorders: No Pertinent History Comment: GOUT, NEURAPTHAY - Past Surgical History Past Surgical History: Yes Neuro Surgical History: No Pertinent History Cardiac History: Cardiac Catheterization, Cardiac Stent Respiratory Surgery: No Pertinent History GI Surgical History: Cholecystectomy Genitourinary Surgical Hx: No Pertinent History Musculskeletal Surgical Hx: Joint Replacement Female Surgical History: Section Other Surgical History: double hip replacement - Social History Smoking Status: Never smoker Exposure to second hand smoke: No Alcohol: None Drug Use: none - Physical Exam Vital Signs: Vital Signs - 24 hr Temp Pulse Resp BP BP Pulse Ox 02/22/23 18:26 96 02/22/23 17:47 68 18 90 L 02/22/23 17:00 97.3 F 61 12 113/54 90 L 02/22/23 16:00 65 20 118/71 94 L 02/22/23 15:30 59 L 22 110/56 94 L 02/22/23 15:27 119/51 95 02/22/23 15:00 99/49 95 02/22/23 13:49 98.6 F 61 21 112/62 96 General Appearance: no apparent distress, alert Neurologic Exam: alert, oriented x 3, cooperative, copy cutter II-XII nml as tested, normal mood/affect, nml cerebellar function Eye Exam: PERRL/EOMI, eyes nml inspection Ears, Nose, Throat Exam: normal ENT inspection Neck Exam: normal inspection, non-tender, supple, full range of motion Respiratory Exam: normal breath sounds, lungs clear Cardiovascular Exam: regular rate/rhythm, normal heart sounds Gastrointestinal/Abdomen Exam: soft, normal bowel sounds Back Exam: normal range of motion Extremity Exam: normal inspection, normal range of motion Skin Exam: normal color Results - Labs Lab/Micro Results: Lab Results-Last 24 Hours 02/22/23 02/22/23 02/22/23 Range/Units 14:01 14:36 14:36 WBC 9.8 (4.0-10.5) x10^3/uL RBC 3.95 L (4.1-5.4) x10^6/uL Hgb 12.2 (12.0-16.0) g/dL Hct 38.2 (35-47) % MCV 96.7 (78-100) fL MCH 30.9 (26-32) pg MCHC 31.9 L (32-36) g/dL RDW 15.3 H (11.5-14.0) % Plt Count 215 (150-450) x10^3/uL MPV 11.2 H (7.5-11.0) fL Gran % 54.0 (36.0-66.0) % Immature Gran % (Auto) 0.4 (0.00-0.4) % Nucleat RBC Rel Count 0.3 H (0.00-0.1) % Eos # (Auto) 0.24 (0-0.5) x10^3/uL Immature Gran # (Auto) 0.04 H (0.00-0.03) x10^3u/L Absolute Lymphs (auto) 3.14 (1.0-4.6) x10^3/uL Absolute Monos (auto) 1.01 (0.0-1.3) x10^3/uL Absolute Nucleated RBC 0.03 H (0.00-0.01) x10^3u/L Lymphocytes % 32.0 (24.0-44.0) % Monocytes % 10.3 (0.0-12.0) % Eosinophils % 2.4 (0.00-5.0) % Basophils % 0.9 (0.0-0.4) % Absolute Granulocytes 5.28 (1.4-6.9) x10^3/uL Basophils # 0.09 (0-0.4) x10^3/uL Sodium 136 L (137-145) mmol/L Potassium 4.1 (3.5-5.1) mmol/L Chloride 103 (98-107) mmol/L Carbon Dioxide 20 L (22-30) mmol/L Anion Gap 16.5 H (5-15) MEQ/L BUN 40 H (7-17) mg/dL Creatinine 1.76 H (0.52-1.04) mg/dL Estimated GFR 29.2 ML/MIN Glucose 117 H (74-106) mg/dL Lactic Acid (0.4-2.0) Calcium 8.6 (8.4-10.2) mg/dL Magnesium 2.1 (1.6-2.3) mg/dL Total Bilirubin 0.50 (0.2-1.3) mg/dL AST 38 H (14-36) U/L ALT 24 (0-35) U/L Alkaline Phosphatase 86 (38-126) U/L Troponin I 0.093 H* (0.000-0.034) ng/mL NT-Pro-B Natriuret Pep 2090 (<300) pg/mL Serum Total Protein 6.9 (6.3-8.2) g/dL Albumin 3.4 L (3.5-5.0) g/dL Procalcitonin 0.290 H (0.030-0.080) ng/mL Influenza Type A Ag (NEGATIVE) Influenza Type B Ag (NEGATIVE) RSV (PCR) (NEGATIVE) SARS-CoV-2 (PCR) (NEGATIVE) 02/22/23 02/22/23 Range/Units 14:40 Unknown WBC (4.0-10.5) x10^3/uL RBC (4.1-5.4) x10^6/uL Hgb (12.0-16.0) g/dL Hct (35-47) % MCV (78-100) fL MCH (26-32) pg MCHC (32-36) g/dL RDW (11.5-14.0) % Plt Count (150-450) x10^3/uL MPV (7.5-11.0) fL Gran % (36.0-66.0) % Immature Gran % (Auto) (0.00-0.4) % Nucleat RBC Rel Count (0.00-0.1) % Eos # (Auto) (0-0.5) x10^3/uL Immature Gran # (Auto) (0.00-0.03) x10^3u/L Absolute Lymphs (auto) (1.0-4.6) x10^3/uL Absolute Monos (auto) (0.0-1.3) x10^3/uL Absolute Nucleated RBC (0.00-0.01) x10^3u/L Lymphocytes % (24.0-44.0) % Monocytes % (0.0-12.0) % Eosinophils % (0.00-5.0) % Basophils % (0.0-0.4) % Absolute Granulocytes (1.4-6.9) x10^3/uL Basophils # (0-0.4) x10^3/uL Sodium (137-145) mmol/L Potassium (3.5-5.1) mmol/L Chloride (98-107) mmol/L Carbon Dioxide (22-30) mmol/L Anion Gap (5-15) MEQ/L BUN (7-17) mg/dL Creatinine (0.52-1.04) mg/dL Estimated GFR ML/MIN Glucose (74-106) mg/dL Lactic Acid 1.2 (0.4-2.0) Calcium (8.4-10.2) mg/dL Magnesium (1.6-2.3) mg/dL Total Bilirubin (0.2-1.3) mg/dL AST (14-36) U/L ALT (0-35) U/L Alkaline Phosphatase (38-126) U/L Troponin I (0.000-0.034) ng/mL NT-Pro-B Natriuret Pep (<300) pg/mL Serum Total Protein (6.3-8.2) g/dL Albumin (3.5-5.0) g/dL Procalcitonin (0.030-0.080) ng/mL Influenza Type A Ag NEGATIVE (NEGATIVE) Influenza Type B Ag NEGATIVE (NEGATIVE) RSV (PCR) NEGATIVE (NEGATIVE) SARS-CoV-2 (PCR) POSITIVE A (NEGATIVE) - Radiology Impressions Radiology Exams & Impressions: Radiology Procedures Category Date Time Status CHEST 1 VIEW (PORTABLE) Stat Exams 02/22/23 14:02 Taken - Other Procedures and Tests Respiratory Therapy 02/22/23 17:46 Respiratory MDI BID Respiratory Therapy Assessment DAILY 02/22/23 17:47 Oxygen Nasal Cannula 2 lpm 02/22/23 18:59 EKG REPEAT IN AM Assessment/Plan (1) COVID-19 virus detected Current Visit: Yes Status: Acute Assessment & Plan: Does not qualify based on guidelines for steroids or inpatient remdesivir. No infiltrate on CXR. Will monitor oxygen requirement. Placed on azithromycin empirically. Code(s): U07.1 - COVID-19 (2) Dyspnea Current Visit: Yes Status: Acute Assessment & Plan: Monitor oxygen requirement. Currently on room air. Code(s): R06.00 - DYSPNEA, UNSPECIFIED (3) Diabetes Current Visit: Yes Status: Acute Assessment & Plan: Monitor sugars on a sliding scale. Code(s): E11.9 - TYPE 2 DIABETES MELLITUS WITHOUT COMPLICATIONS Telemedicine Encounter - Telemedicine Encounter Telemedicine Encounter: The entirety of this encounter was performed via Telemedicine"
[2023-02-22] MEDS: HUMALOG SQ PRN (21:25)
[2023-02-22] MEDS: Pepcid 20 MG VIAL IV SCH (21:25)
[2023-02-22] MEDS: Lopressor 25MG Tab PO SCH (21:27)
[2023-02-22] MEDS ORDERED: ZOCOR 20MG ONE (21:32)
[2023-02-22] MEDS ORDERED: NON-FORMULARY ITEM (Pravastatin Sodium [Pravastatin Sodium] 40 MG Tablet) PO SCH (22:00)
[2023-02-22] MEDS ORDERED: ECOTRIN 81 MG PO SCH (22:00)
[2023-02-22] MEDS ORDERED: Singulair 10 MG PO SCH (22:00)
[2023-02-22] MEDS ORDERED: NON-FORMULARY ITEM (Budesonide/Formoterol Fumarate [Budesonide-Formoterol 160-4.5] 10.2 GM IH SCH (22:00)
[2023-02-22] MEDS: AZACTAM 1 GM*** 1 GM in Sodium Chloride 100ML MINI-BAG PLUS 100 ML IV SCH (23:37)
[2023-02-23] MEDS: PATIENT OWN MEDICATION IH SCH ×3 (05:24→11:45)
[2023-02-23] MEDS: AZACTAM 1 GM*** 1 GM in Sodium Chloride 100ML MINI-BAG PLUS 100 ML IV SCH ×2 (05:41→11:16)
[2023-02-23 05:54] LABS: Absolute Neutrophil Ct (ANC) 3.43 x10^3/uL (1.4-6.9); BASOPHIL % 0.4 % (0.0-0.4); Basophil (Absolute #) 0.02 x10^3/uL (0-0.4); Eosinophil (Absolute #) 0 x10^3/uL (0-0.5); IMMATURE GRAN # 0.02 x10^3u/L (0.00-0.03); IMMATURE GRAN % 0.4 % (0.00-0.4); Lymphocyte (Absolute #) 1.91 x10^3/uL (1.0-4.6); Lymphocytes % 34.8 % (24.0-44.0); Mean Cell Volume 95.1 fL (78-100); Mean Corpuscular Hemoglobin 30.8 pg (26-32); Mean Corpuscular Hgb Concent. 32.4 g/dL (32-36); Mean Platelet Volume 11.5 fL (7.5-11.0); Monocyte (Absolute #) 0.11 x10^3/uL (0.0-1.3); Neutrophil % 62.4 % (36.0-66.0); Platelet Count 226 x10^3/uL (150-450); Red Blood Count 3.89 x10^6/uL (4.1-5.4); Red Cell Distribution Width 14.9 % (11.5-14.0); White Blood Count 5.5 x10^3/uL (4.0-10.5)
[2023-02-23 06:15] LABS: ALBUMIN 3.4 g/dL (3.5-5.0); ANION GAP 13.9 MEQ/L (5-15); BILIRUBIN,TOTAL 0.4 mg/dL (0.2-1.3); Creatinine 1 1.82 mg/dL (0.52-1.04); EST GLOMERULAR FILTRATION RATE 28.1 ML/MIN; Potassium 4.6 mmol/L (3.5-5.1); Total Protein 6.9 g/dL (6.3-8.2)
[2023-02-23] MEDS: HUMALOG SQ PRN (08:41)
[2023-02-23] MEDS: Lopressor 25MG Tab PO SCH (09:57)
[2023-02-23] MEDS: Pepcid 20 MG VIAL IV SCH (09:58)
[2023-02-23] MEDS ORDERED: Amaryl 2 MG PO SCH (10:00)
[2023-02-23] MEDS ORDERED: Prozac 20 MG PO SCH (10:00)
[2023-02-23] MEDS ORDERED: Protonix 40MG Tablet PO SCH (10:00)
[2023-02-23] MEDS ORDERED: ZYLOPRIM 300 MG PO SCH (10:00)
[2023-02-23] MEDS ORDERED: Cardizem CD PO SCH (10:00)
[2023-02-23] MEDS ORDERED: Aldactone 25 MG PO SCH (10:00)
[2023-02-23] MEDS ORDERED: SYNTHROID 25 MCG PO SCH (10:00)
[2023-02-23] MEDS ORDERED: Zithromax 500 MG/ 250 ML NaCl Premix 500 MG/250 ML IVPB IV SCH (10:00)
[2023-02-23] MEDS ORDERED: LEVOTHYROXINE SODIUM 137 MCG PO SCH (10:00)
[2023-02-23] MEDS ORDERED: ZYLOPRIM 100 MG PO SCH (10:00)
[2023-02-23] MEDS ORDERED: DILTIAZEM HCL 180 MG PO SCH (10:00)
[2023-02-23] MEDS ORDERED: SYNTHROID 112 MCG PO SCH (10:00)
[2023-02-23 10:32] VITALS: RESP 16
[2023-02-23 11:34] VITALS: BP 145/63; TEMP 97.3; O2SAT 96
[2023-02-23 12:41] VITALS: PULSE 66
[2023-02-23] MEDS ORDERED: NYSTOP POWDER 15 GM TP SCH (14:45)
[2023-02-23] MEDS ORDERED: XARELTO 10 MG TABLET PO SCH (17:00)
--- NOTE | 2023-02-24 07:09 | PCM.DS ---
Discharge Summary Date of Admission: 02/22/23 16:32 Date of Discharge: 23 Feb 2023 Admitting Physician: OPAL POWERS MD Primary Care Provider: CORDELL PAGE Allergies Allergies ezetimibe [From Vytorin 10-10] Allergy (Intermediate, Verified 02/22/23 13:48) simvastatin [From Vytorin 10-10] Allergy (Intermediate, Verified 02/22/23 13:48) NSAIDS (Non-Steroidal Anti-Inflamma Allergy (Mild, Verified 02/22/23 13:48) colchicine Allergy (Verified 02/22/23 13:48) pregabalin [From Lyrica] Allergy (Verified 02/22/23 13:48) indomethacin Adverse Reaction (Severe, Verified 02/22/23 13:48) seizures rofecoxib [From Vioxx] Adverse Reaction (Severe, Verified 02/22/23 13:48) atorvastatin calcium [From Lipitor] Adverse Reaction (Intermediate, Verified 02/22/23 13:48) pain Penicillins Adverse Reaction (Intermediate, Verified 02/22/23 13:48) Itching pravastatin sodium [From Pravachol] Adverse Reaction (Intermediate, Verified 02/22/23 13:48) Swelling niacin [From Simcor] Adverse Reaction (Verified 02/22/23 13:48) Hospital Summary - Hospital Course Hospital Course: TRoponin unremarkable, no chest pain, in chronic AF - Vitals & Intake/Output Vital Signs: Vital Signs Temperature 97.3 F 02/23/23 11:32 Pulse Rate 66 02/23/23 11:45 Respiratory Rate 16 02/23/23 14:00 Blood Pressure 145/63 02/23/23 11:32 O2 Sat by Pulse Oximetry 96 02/23/23 11:45 Intake & Output: Intake & Output 02/21/23 02/22/23 02/23/23 02/24/23 11:59 11:59 11:59 11:59 Intake Total 1740 480 Balance 1740 480 Weight 78 kg - Lab Result Diagrams: 02/23/23 05:35 02/23/23 05:35 Lab Results-Last 24 Hrs: Lab Results-Last 24 Hours 02/23/23 02/23/23 02/23/23 Range/Units 07:28 10:40 11:19 POC Glucometer 280 H 330 H (74 to 106) mg/dL Hemoglobin A1c 7.95 H (4.5-6.0) % Micro Results-Entire Visit: Accuchecks Date 02/23/23 Time 11:32 - Radiology Exams Ordered Rad Exams-Entire Visit: Radiology Procedures Category Date Time Status CHEST 1 VIEW (PORTABLE) Stat Exams 02/22/23 14:02 Taken - Procedures and Test Procedures and Tests throughout Hospitalization: Therapy Orders & Screens 02/22/23 17:46 Respiratory MDI BID Comment: Diagnosis: COVID Respiratory Therapy Assessment DAILY Comment: Diagnosis: COVID 02/22/23 17:47 Oxygen Nasal Cannula 2 lpm Comment: Diagnosis: COVID 02/22/23 18:59 EKG REPEAT IN AM Comment: Diagnosis: COVID 02/22/23 20:22 Respiratory MDI QID Comment: Diagnosis: COVID Discharge Exam Neurologic Exam: alert, oriented x 3, cooperative Neck Exam: normal inspection Respiratory Exam: normal breath sounds Cardiovascular Exam: normal heart sounds, irregular Gastrointestinal/Abdomen Exam: soft Final Diagnosis/Problem List - Final Discharge Diagnosis/Problem (1) Elevated troponin Status: Acute Assessment & Plan: No chest pain; tropnin flat; no EKG changes of concern; no clincial concern (1) COVID-19 virus detected Current Visit: Yes Status: Acute Assessment & Plan: Does not qualify based on guidelines for steroids or inpatient remdesivir. No infiltrate on CXR. Will monitor oxygen requirement. Placed on azithromycin empirically. Code(s): U07.1 - COVID-19 (2) Dyspnea Current Visit: Yes Status: Acute Assessment & Plan: Monitor oxygen requirement. Currently on room air. Code(s): R06.00 - DYSPNEA, UNSPECIFIED (3) Diabetes Current Visit: Yes Status: Acute Assessment & Plan: Monitor sugars on a sliding scale. Code(s): E11.9 - TYPE 2 DIABETES MELLITUS WITHOUT COMPLICATIONS Code(s): R77.8 - OTHER SPECIFIED ABNORMALITIES OF PLASMA PROTEINS Telemedicine Encounter - Telemedicine Encounter Telemedicine Encounter: The entirety of this encounter was performed via Telemedicine" - Discharge Disposition: Home, Self-Care Condition: Stable Prescriptions: Continue Metoprolol Tartrate 25 mg [Lopressor 25MG Tab] 50 mg PO BID Allopurinol 100 mg [Zyloprim 100 mg] 300 mg PO DAILY Aspirin [Aspir 81] 81 mg PO HS Albuterol Sulfate [Ventolin Hfa] 2 puffs IH BID PRN Spironolactone 25 mg [Aldactone 25 MG] 25 mg PO DAILY Fluoxetine HCl 20 mg [Prozac 20 MG] 20 mg PO DAILY Nitroglycerin 0.4 mg Tablet [Nitrostat 0.4 MG Tablet] 0.4 mg SL Q5MIN PRN MR X 3 PRN PRN Reason: Chest Pain Tramadol HCl 50 mg [Ultram 50 mg] 50 mg PO BID PRN PRN Reason: Pain Levothyroxine Sodium [Levoxyl] 137 mcg PO DAILY Pravastatin Sodium 40 mg PO HS Montelukast Sodium 10 mg [Singulair 10 MG] 10 mg PO HS Rivaroxaban 10 mg Tablet [Xarelto 10 mg Tablet] 15 mg PO DINNER Glimepiride 2 mg [Amaryl 2 MG] 2 mg PO DAILY dilTIAZem HCL [Diltiazem 24Hr ER] 180 mg PO DAILY Budesonide/Formoterol Fumarate [Budesonide-Formoterol 160-4.5] 2 puffs IH BID Instructions: COVID-19 (DC) Follow up with: CORDELL PAGE MD [Primary Care Provider] - Call for Appointment (CALL FOR AN APPOINTMENT ON SATURDAY FOR A ONE WEEK FOLLOW UP. ) Forms: Discharge Instructions
== END 2023-02-23 15:20 | disposition home or self-care (01) ==
LOC: ED 13:33 → MED SURG 16:32
PROVIDERS: ADMIT Internal Medicine; ATTEND Internal Medicine
DX: U07.1 COVID-19 (principal); R77.8 Other specified abnormalities of plasma proteins; R06.00 Dyspnea, unspecified; E11.9 Type 2 diabetes mellitus without complications; E78.5 Hyperlipidemia, unspecified; I11.0 Hypertensive heart disease with heart failure; I50.9 Heart failure, unspecified; I48.91 Unspecified atrial fibrillation; I25.10 Atherosclerotic heart disease of native coronary artery without angina pectoris; Z79.01 Long term (current) use of anticoagulants; Z79.899 Other long term (current) drug therapy; Z20.828 Contact with and (suspected) exposure to other viral communicable diseases
CPT/HCPCS: 0241U; 36000; 36415; 71045; 80053; 82947; 83036; 83605; 83735; 83880; 84145; 84484; 85025; 87040; 93005; 94640; 94762; 96374; 99285; 93268; J0456; J1100; J1817; Q3014; A9270-GY; G0378